=== PATIENT | female | born 1990 | race Caucasian/White ===

== ENCOUNTER 2019-04-16 12:20 | Inpatient (IN) ==
[2019-04-16] MEDS ORDERED: Ringers Solution, Lactated 1,000 ML ONE ×2 (12:34→15:20)
[2019-04-16] MEDS ORDERED: Metoclopramide 10 MG/2 ML VIAL IVP PRN ×2 (12:39→20:47)
[2019-04-16] MEDS ORDERED: Naloxone 0.4 MG/ML INJ IVP PRN (12:39)
[2019-04-16] MEDS ORDERED: Famotidine 20 MG/2 ML VIAL IVP PRN (12:39)
[2019-04-16] MEDS ORDERED: Ondansetron 4 MG/2 ML VIAL IVP PRN ×2 (12:39→20:47)
[2019-04-16] MEDS ORDERED: Ampicillin 2 GM in 0.9 % Sodium Chloride Mini Bag 100 ML IVPB STA (12:42)
[2019-04-16] MEDS ORDERED: Ringers Solution, Lactated 1,000 ML IVC SCH (12:45)
[2019-04-16 12:56] LABS: Basophils % 0.2 %; Eosinophils % 0.1 %; Hemoglobin 12.5 g/dL (10.0-21.5); Immature Granulocytes % 0.4 % (0-4); Lymphocytes # 1.3 K/mcL (0.6-4.6); Lymphocytes % 8.2 %; Mean Corpuscular HGB Conc 33.8 g/dL (28.0-37.0); Mean Corpuscular Hemoglobin 31.4 pg (28.0-40.0); Monocytes % 6.3 %; Neutrophils # 13.8 K/mcL (1.0-10.0); Platelet Count 194 K/mcL (140-400); Red Blood Count 3.98 M/mcL (3.00-6.30); Red Cell Distribution Width 13.6 % (11.5-14.5); Segmented Neutrophils % 84.8 %; White Blood Count 16.3 K/mcL (5.0-21.0)
[2019-04-16] MEDS ORDERED: Gentamicin 80 MG in 0.9 % Sodium Chloride 100 ML IVPB ONE (13:00)
--- NOTE | 2019-04-16 13:04 | OB/GYN History & Physical ---
Date of Encounter: 04/16/19 Time of Encounter: 12:58 Assessment and Plan (1) 41 weeks gestation of Current visit: Yes Status: Acute admitted for delivery (2) Thick meconium stained amniotic fluid Current visit: Yes Status: Acute Nursery notified History of Present Illness Chief complaint: labor HPI: Ms. Levy is a 28 y/o at 41 weeks gestation presents to labor and delivery from the [facility]. Patient was brought by her tail board man Laura You. Patient's water broke around 1400 yesterday. Fluid was clear however this morning turned to thick meconium around 11:18 today. The heart rate also became tachycardic this morning. She received 1 gram Rocephin at 0720 today. Patient denies any complications with current . Patient last at around 1000. Blood type: A Negative GBS: Negative Rubella: Nonimmune Hep B: unknown Past Med Surg Social Fam HX - Past Medical History Source: patient Medical history: no medical history Psychiatric history: no psych history - Past Surgical History Surgical History: no surgical history - Social History Smoking Status: Never smoker Smokeless Tobacco Status: No Alcohol use: none Drug use: none Current living situation: Detention Recent Out of Country Travel Within the Last 8 Weeks: No Obstetrical History - Pregnancies : 1 Para: 0 Term: 0 : 0 Ab's: 0 Livin Review of System OB - Constitutional Constitutional ROS IM: no chills, no fever(s), no headache(s) - Cardiovascular Cardiovascular: no chest pain, no palpitations, no syncope - Respiratory Respiratory: no cough, no dyspnea - Gastrointestinal Gastrointestinal: no constipation, no heartburn, no nausea, no vomiting - Genitourinary Genitourinary: vaginal discharge (per HPI), no abnormal vaginal bleeding, no urinary frequency, no urinary urgency, no vaginal odor, no vaginal pruritis Exam - Constitutional Constitutional: well developed, well nourished, no acute distress, average body habitus - HEENT HEENT: Normocephaly, Mucus Membranes Moist - Neck Neck exam: full ROM, supple - Lungs Respiratory exam: CTAB - Cardiovascular Cardiovascular exam: RRR, +S1, +S2 - Abdomen Abdomen: Present: bowel sounds normal, gravid, non tender - Extremities Extremities exam: full ROM, normal inspection Deep Tendon Reflex Grade: 2+ Normal - Cervix Dilation: 3 Effacement: 80 Station: -2 - Uterus Uterus exam: Present: normal size, normal contour - Anus/Rectum Anus/Rectum: Present: normal perianal skin - Comments Comments: FHR 165 bpm no accels no decels noted. Moderate variability. Contractions 2-3 min apart. Moderate amount of thick meconium noted during SVE. Results Result Diagrams: 04/16/19 12:40 Abnormal lab results Neutrophils # 13.8 K/mcL (1.0-10.0) H 04/16/19 12:40 All other labs normal. - VTE Reasons for not Prescribing Prophylaxis: Treatment not Indicated - Low risk for VTE
[2019-04-16 13:05] LABS: Amphetamine Screen,Urine Negative ng/mL (Cutoff=1000); Barbiturate Screen,Urine Negative ng/mL (Cutoff=200); Benzodiazepines Screen,Urine Negative ng/mL (Cutoff=200); Cannabinoid Screen,Urine Negative ng/mL (Cutoff = 50); Cocaine Screen,Urine Negative ng/mL (Cutoff= 300); Opiate Screen,Urine Negative ng/mL (Cutoff=300); Phencyclidine Screen,Urine Negative ng/mL (Cutoff=25)
[2019-04-16] MEDS ORDERED: Epidural Premix (fent/bupiv) 110 ML EP SCH (13:15)
[2019-04-16] MEDS ORDERED: *HR* Oxytocin 10 UNIT/ML VIAL IM ONE ×2 (15:18→16:46)
[2019-04-16] MEDS ORDERED: *HR* Morphine Sulfate/PF 10 MG/10 ML AMPUL ONE (15:18)
[2019-04-16] MEDS ORDERED: *HR* FentaNYL (PF) 100 MCG/2 ML VIAL ONE (15:18)
[2019-04-16] MEDS ORDERED: EPHEDrine 50 MG/ML VIAL ONE (15:19)
--- NOTE | 2019-04-16 15:47 | Anesthesia Evaluation PreOp ---
Date of Encounter: 04/16/19 Time of Encounter: 15:32 - Past History Planned Operation: Del, G1 spont 41wks trans from birthing center Cardiac History: Denies any Significant Hx Pulmonary History: Denies Any Significant HX WOMEN'S LACROSSE COACH History: Denies Any Significant HX Other Medical History: Denies Any Significant HX Anesthesia History: No Prior Anesthetic Complications, Past Anesthesia (no known family comp,) Alcohol Use: none Drug use: none Anesthesia Results - Labs 04/16/19 12:40 Anesthesia Exam - HEENT Pupil (Motor): Pupils equal Mallampati: II Teeth: Normal Oral Opening: Greater than 3 - WOMEN'S LACROSSE COACH LOC: Oriented WOMEN'S LACROSSE COACH Motor: Normal RUE, Normal LUE, Normal RLE, Normal LLE, Normal Face WOMEN'S LACROSSE COACH Sensory: Normal: RUE, LUE, RLE, LLE, Face - Cardiac Rhythm: Regular Murmur: None - Pulmonary Breath Sounds: bilateral Clear Respiratory Effort: Symmetrical - Additional Findings called for potential emergent d/t late dec, pt cont to contract, tracing has improved and awaiting team decision for plan. consent obtained. Anesthesia Assess/Plan ASA Score: 2 Level of consciousness: Cooperative, Oriented, Tranquil Anesthetic Plan: General, Spinal, Epidural Monitoring Plan: Standard Monitors Recovery Plan: PACU
[2019-04-16] MEDS ORDERED: Azithromycin 500 MG in D5% in Water 250 ML IVPB STA (16:25)
[2019-04-16] MEDS ORDERED: Metoclopramide 10 MG/2 ML VIAL IVP ONE (16:25)
[2019-04-16] MEDS ORDERED: CeFAZolin Premix DUPLEX 2,000 MG/50 ML BAG IVPB ONE (16:25)
[2019-04-16] MEDS ORDERED: Famotidine 20 MG/2 ML VIAL IVP ONE (16:25)
--- NOTE | 2019-04-16 16:25 | Event Note ---
Date of Encounter: 04/16/19 Time of Encounter: 16:21 28yo @ 41.0 wga presented as a transfer from the [facility]. SROM was yesterday at 1400. Light meconium was noted and it has progressed to thick meconium. She was 2 cm dilated when she left the [facility] this morning. The most recent check she was found to be 5 cm. heart rate tracing has reflected a persistent category 2. Baseline is 165/minimal variability/no accels/3 late Decels with the deepest down to 120 lasting for 2 minutes before return to baseline and contractions every 2-4 minutes. Each time the patient adjusts her position late D cells occurs. We discussed the risks, benefits and alternatives to expectant management versus a primary section. The patient consented to a primary section. Preoperative antibiotics ordered and she is being prepped for the OR currently.
[2019-04-16] MEDS ORDERED: Ondansetron 4 MG/2 ML VIAL ONE (17:12)
[2019-04-16] MEDS ORDERED: Ketorolac 30 MG/ML VIAL ONE (17:35)
--- NOTE | 2019-04-16 18:02 | OB/GYN Procedure Note ---
Section - Date of procedure: 04/16/19 Preop diagnosis: category 2 FHT tracing (Persistent ), other (2. Prolonged rupture 3. IUP at 41 weeks 0 days) Post-op diagnosis: same Procedure: section, primary low transverse Surgeon: Carli Hassan Quantitated Blood Loss: 800 Was there an graphic design assistant present: Yes Health Occupations Teacher: Amanda Bae Anesthesia Type: Spinal (With Duramorph) section complications: none Disposition: L&D Recovery Room Specimens: Placenta, Cord segment, Cord blood, Cord gasses - Narrative Narrative: Operation Performed Primary Low Transverse Section Indication for Surgery 28yo at 41.0 wga presented to labor and delivery as a transfer from the [facility]. SROM was at 1400 yesterday. Light meconium was noted SROM which progressively thickened. When she left the [facility] she was dilated 2 cm. She progressed to 5 cm on labor and delivery before having a persistent category 2 heart rate tracing with recurrent late decelerations. Antibiotics were started upon admission due to tachycardia. The patient was informed of the risks and benefits of a section. Risks included but were not limited to bleeding, infection, injury to the presenting part of the fetus, injury to the bladder, bowel, ureters and the surrounding neurovasular bundles. The patient expressed understanding of the risks involved. All questions were answered and the patient consented to the procedure. Preoperative Diagnosis 1. IUP @ 41.0 wga 2. Prolonged rupture of membranes 3. Persistent category 2 heart rate tracing Postoperative Diagnosis Same Surgeon Carli Hassan D.[facility] Occupations Teacher(s) Raman Bae Anesthesia Spinal with Duramorph Estimated Blood Loss 800 mL Urine Output 175 mL of clear yellow urine IV Fluids 1200 mL crystalloid Specimen(s) Placenta, Cord gasses, Cord blood Findings Live female , weighing 7 pounds and 11 ounces, with APGARS of 8/8. Normal appearing uterus, tubes and ovaries bilaterally. Complications None Technique The patient was taken to the operating room where a timeout was performed to confirm correct patient and correct procedure. Preoperative antibiotics were administered and spinal anesthesia was found to be adequate. The patient was prepped and draped in the usual sterile fashion for a section, in supine position with a leftward tilt of the hips. A Pfannenstiel skin incision was made with a scalpel. Dissection to the fascia was carried out using blunt and sharp dissection, followed by the Bovie electrocautery for hemostasis. The fascia was incised with a scalpel and the incision was extended laterally using curved Gomez scissors. Raymundo clamps were used to tent up the superior edge of the fascia and the underlying rectus muscles were dissected off using blunt and sharp dissection. Attention was then turned to the inferior fascial edge and dissection carried out in a similar manner. The rectus muscles were then in the midline and the peritoneum was entered using blunt and sharp dissection. The peritoneum was grasped with hemostats at the superior aspect, care was taken to avoid the bladder, and incised with Metzenbaum scissors. The peritoneal incision was extended using light traction. A bladder blade was inserted, the vesicoperitoneal reflection was identified, and a bladder flap was created using Metzenbaum scissors and blunt dissection. The bladder blade was then replaced to protect the bladder. The lower uterine segment was incised with a scalpel in transverse fashion. The hysterotomy was extended laterally with blunt traction in cephalad and caudad directions. The fetus was in vertex presentation. Large quantity of meconium-stained fluid noted. The surgeon's hand was placed under the infant's head and the infant delivered through the hysterotomy with the assistance of fundal pressure. The cord was clamped 2 and cut. The was safely transferred to the warmer for further care by the solar lab technician. Cord blood and gases were obtained for routine testing. The placenta, with three-vessel cord, was expressed intact. The placenta and uterus were both meconium-stained. The uterus was wiped clean of clots and debris before closing the hysterotomy with a running locked 0 Vicryl suture. A second imbricating layer of the same suture was placed for hemostasis. Excellent hemostasis obtained. Surgicel was placed to maintain hemostasis over the hysterotomy and bladder flap. The fascia was closed using Stratafix suture in a running nonlocked fashion. The subcutaneous tissue was closed with 3-0 Vicryl suture in a running nonlocked fashion. The skin was closed with a subcuticular stitch of 4-0 Vicryl. The patient tolerated the procedure well. At the end of the procedure, all needle sponge and instrument counts were noted to be correct 2. The patient tolerated the procedure well and was transferred to the recovery room in stable condition. Raman Bae assisted in retracting tissue to aid in visualization, cut suture, provide fundal pressure and maintain visualization within the operative field by evacuating blood and debris when needed.
[2019-04-16] MEDS ORDERED: Oxytocin 20 units/ LR 1000 mL 20 UNIT/1,000 ML BAG IVC ONE (19:18)
[2019-04-16 20:23] LABS: Basophils % 0.2 %; Immature Granulocytes % 0.5 % (0-4); Lymphocytes % 7.5 %; Mean Corpuscular HGB Conc 33.3 g/dL (31.6-35.5); Mean Corpuscular Hemoglobin 31.3 pg (28.0-33.3); Mean Corpuscular Volume 93.8 fL (83.0-100.0); Mean Platelet Volume 10.2 fL (9.4-12.4); Monocytes # 0.8 K/mcL (0.0-1.3); Monocytes % 5.8 %; Neutrophils # 11.4 K/mcL (1.6-8.9); Platelet Count 199 K/mcL (140-400); Red Blood Count 3.52 M/mcL (3.82-4.97); Red Cell Distribution Width 13.8 % (11.5-14.5); White Blood Count 13.3 K/mcL (4.3-11.1)
[2019-04-16 20:44] LABS: eGFR For African Americans > 60 (> 60); eGFR For Non-African Americans > 60 (> 60)
[2019-04-16] MEDS ORDERED: Sennosides 8.6 MG TABLET PO PRN (20:47)
[2019-04-16] MEDS ORDERED: Acetaminophen 325 MG TABLET PO SCH (20:47)
[2019-04-16] MEDS ORDERED: *HR* OxyCODONE/APAP 5/325 TABLET PO PRN (20:47)
[2019-04-16] MEDS ORDERED: Oxytocin 20 units/ LR 1000 mL 20 UNIT/1,000 ML BAG IVC SCH (20:47)
[2019-04-16] MEDS ORDERED: Rho Immune Globulin 1,500 UNIT SYRINGE IM ONE (20:47)
[2019-04-16] MEDS ORDERED: Gentamicin 80 MG in 0.9 % Sodium Chloride 100 ML IVPB SCH (22:00)
--- NOTE | 2019-04-16 22:00 | Anesthesia Evaluation Post Op ---
Date of Encounter: 04/16/19 Time of Encounter: 21:59 - Vital Signs Vital Signs: vss - Airway Airway: Non-obstructed - Mental Status Mental Status: Alert & Oriented, Answers Appropriately - Pain Pain Scale used: Prince (Faces) - Nausea Vomiting Nausea Vomiting: Not Present - Hydration Hydration: Ice chips - Discharge PostOp Status: Transfer Patient to floor
[2019-04-16] MEDS ORDERED: GENTAMICIN IVPB SCH (23:00)
[2019-04-16] MEDS ORDERED: SODIUM CHLORIDE 0.9% IVPB SCH (23:00)
[2019-04-16] MEDS: Simethicone 80 MG TAB.CHEW PO SCH (23:01)
[2019-04-16] MEDS: Ketorolac 30 MG/ML VIAL IVP SCH (23:20)
[2019-04-16] MEDS: Gentamicin 80 MG in 0.9 % Sodium Chloride 100 ML IVPB SCH (23:21)
[2019-04-17] MEDS: Ampicillin 2 GM in 0.9 % Sodium Chloride Mini Bag 100 ML IVPB SCH ×4 (01:06→19:05)
[2019-04-17] MEDS: Acetaminophen 325 MG TABLET PO SCH ×4 (03:53→20:18)
[2019-04-17] MEDS: Ketorolac 30 MG/ML VIAL IVP SCH (06:04)
[2019-04-17 07:40] LABS: Hematocrit 29.1 % (35.3-44.9); Hemoglobin 9.5 g/dL (11.5-15.4); Mean Corpuscular HGB Conc 32.6 g/dL (31.6-35.5); Platelet Count 171 K/mcL (140-400); Red Blood Count 2.97 M/mcL (3.82-4.97); Red Cell Distribution Width 14.2 % (11.5-14.5); White Blood Count 10.9 K/mcL (4.3-11.1)
[2019-04-17] MEDS: Prenatal Vit/FA 1 EACH TABLET PO SCH (08:06)
[2019-04-17] MEDS: Gentamicin 80 MG in 0.9 % Sodium Chloride 100 ML IVPB SCH ×3 (08:06→22:48)
[2019-04-17] MEDS: Simethicone 80 MG TAB.CHEW PO SCH ×3 (08:06→20:18)
[2019-04-17 08:17] LABS: eGFR For African Americans > 60 (> 60); eGFR For Non-African Americans > 60 (> 60)
[2019-04-17 08:27] LABS: Lymphocytes # 1.5 K/mcL (0.6-4.6); Monocytes # 0.3 K/mcL (0.0-1.3); Neutrophils # 9.1 K/mcL (1.6-8.9)
[2019-04-17 08:28] LABS: Platelet Estimate Normal (Normal)
--- NOTE | 2019-04-17 10:24 | OB/GYN Progress Note ---
Date of Encounter: 04/17/19 Time of Encounter: 10:22 - Assessment and Plan (1) S/P primary low transverse Current Visit: Yes Status: Acute Continue routine /postop care Anticipate discharge home tomorrow Subjective - Subjective Principal diagnosis: Primary Interval history: S/P Delivery Day 1. VSS Pain is well controlled Lochia is light and without clots Tolerating regular diet, passing flatus Was straight catheterized this AM after fonseca was removed Breast feeding Anticipate discharge to guest tomorrow POC per consult with Dr Capone Patient reports: appetite normal, voiding normally, pain well controlled, ambulating normally : doing well, in NICU Objective - Vital Signs Latest vital signs: Vital Signs Temp Pulse Resp BP Pulse Ox 04/17/19 03:52 98.2 F 68 14 90/47 98 04/16/19 23:15 97.8 F 79 18 102/58 96 04/16/19 22:10 98.2 F 87 18 95/56 97 04/16/19 21:10 98.7 F 87 18 96/53 95 04/16/19 20:52 98.3 F 79 14 100/54 95 04/16/19 20:10 97.9 F 81 16 98/54 97 Intake and Output 04/16/19 04/17/19 04/17/19 23:59 07:59 15:59 Intake Total 290 / 290 1102 / 1952 850 / 1952 Output Total 425 / 425 450 / 450 Balance -135 / -135 652 / 1502 850 / 1502 Intake: IV Fluids 302 / 302 Ampicillin 2 GM In 0.9 % Sodium 200 / 200 Chloride (Mini-Bag +) 100 ML @ 200 mls/hr IVPB Q6HR [facility] Rx#: [id number] Garamycin 80 MG In 0.9 % Sodium 102 / 102 Chloride 100 ML @ 100 mls/hr IVPB Q8H [facility] Rx#:[id number] Oral 290 / 290 800 / 1650 850 / 1650 Output: Urine 450 / 450 Catheter 425 / 425 - Exam Lungs: bilateral: normal Chest: Normal S1, Normal S2 Extremities: Present: normal Abdomen: Present: normal appearance, soft. Absent: distention, tenderness Incision: Present: normal (Dressing C/D/I), dry Uterus: Present: normal, firm Fundal Height: 0 (u/2) - Labs Labs: Laboratory Results - last 24 hr 04/16/19 04/16/19 04/16/19 12:40 12:40 17:50 WBC 16.3 RBC 3.98 Hgb 12.5 Hct 37.0 MCV 93.0 MCH 31.4 MCHC 33.8 RDW 13.6 Plt Count 194 MPV 10.0 Immature Gran % 0.4 Seg Neutrophils % 84.8 Band Neutrophils % Lymphocytes % 8.2 Monocytes % 6.3 Eosinophils % 0.1 Basophils % 0.2 Neutrophils # 13.8 H Lymphocytes # 1.3 Monocytes # 1.0 Eosinophils # 0.0 Basophils # 0.0 Platelet Estimate Creatinine Est GFR ( Amer) Est GFR (Non-Af Amer) Urine Opiates Screen Negative Ur Buprenorphine Scrn Negative Ur Barbiturates Screen Negative Ur Phencyclidine Scrn Negative Ur Amphetamines Screen Negative U Benzodiazepines Scrn Negative Urine Cocaine Screen Negative U Marijuana (THC) Screen Negative Ur Drug Screen Interp See Below Hep Bs Antigen Screen NEGATIVE Baby's Blood Type A RH POSITIVE Mother's Blood Type A RH NEGATIVE Rhogam Indicated YES Rhogam Req for Mother 1 04/16/19 04/16/19 04/16/19 19:35 19:35 19:35 WBC 13.3 H RBC 3.52 L Hgb 11.0 L D Hct 33.0 L MCV 93.8 MCH 31.3 MCHC 33.3 RDW 13.8 Plt Count 199 MPV 10.2 Immature Gran % 0.5 Seg Neutrophils % 86.0 Band Neutrophils % Lymphocytes % 7.5 Monocytes % 5.8 Eosinophils % 0.0 Basophils % 0.2 Neutrophils # 11.4 H Lymphocytes # 1.0 Monocytes # 0.8 Eosinophils # 0.0 Basophils # 0.0 Platelet Estimate Creatinine 0.39 L Est GFR ( Amer) > 60 Est GFR (Non-Af Amer) > 60 Urine Opiates Screen Ur Buprenorphine Scrn Ur Barbiturates Screen Ur Phencyclidine Scrn Ur Amphetamines Screen U Benzodiazepines Scrn Urine Cocaine Screen U Marijuana (THC) Screen Ur Drug Screen Interp Hep Bs Antigen Nonreactive Screen Baby's Blood Type Mother's Blood Type Rhogam Indicated Rhogam Req for Mother 04/17/19 04/17/19 06:53 07:42 WBC 10.9 RBC 2.97 L Hgb 9.5 L D Hct 29.1 L MCV 98.0 MCH 32.0 MCHC 32.6 RDW 14.2 Plt Count 171 MPV 10.0 Immature Gran % Seg Neutrophils % 79.0 Band Neutrophils % 4.0 Lymphocytes % 14.0 Monocytes % 3.0 Eosinophils % Basophils % Neutrophils # 9.1 H Lymphocytes # 1.5 Monocytes # 0.3 Eosinophils # Basophils # Platelet Estimate Normal Creatinine 0.43 L Est GFR ( Amer) > 60 Est GFR (Non-Af Amer) > 60 Urine Opiates Screen Ur Buprenorphine Scrn Ur Barbiturates Screen Ur Phencyclidine Scrn Ur Amphetamines Screen U Benzodiazepines Scrn Urine Cocaine Screen U Marijuana (THC) Screen Ur Drug Screen Interp Hep Bs Antigen Screen Baby's Blood Type Mother's Blood Type Rhogam Indicated Rhogam Req for Mother
[2019-04-17] MEDS ORDERED: Rho Immune Globulin 1,500 UNIT SYRINGE IM ONE (10:55)
[2019-04-17] MEDS: Ibuprofen 600 MG TABLET PO SCH ×3 (14:26→20:18)
[2019-04-18] MEDS: Acetaminophen 325 MG TABLET PO SCH ×3 (02:47→16:47)
[2019-04-18] MEDS: Ibuprofen 600 MG TABLET PO SCH (02:48)
--- NOTE | 2019-04-18 09:26 | OB/GYN Progress Note ---
Date of Encounter: 04/18/19 Time of Encounter: 09:24 - Assessment and Plan (1) S/P primary low transverse Current Visit: Yes Status: Acute Patient has met all milestones. Her pain is well controlled, she is eating and drinking appropriately has no difficulty with urination or bowel movements. Her incision is clean dry and intact and covered with a clean dry dressing. She is able to ambulate well. At this point in time she is appropriate for discharge, but given her social situation with lack of transportation, and no pharmacy in the hospital open, and with her infant needing to remain hospitalized for IV antibiotics we will keep her in the hospital for 1 more day. Subjective - Subjective Principal diagnosis: S/P Section Interval history: Day two status post Patient reports: appetite normal, voiding normally, pain well controlled (Minimal pressure with movement ), ambulating normally, other (Pt has minimal lochia, has not changed pad overnight. She has had 2BMs and is passing gas. ), no pain poorly controlled, no nauseated : nursing well, other ([place] is in SCN for meconium fluid and prolonged ruptured membranes on antibiotics ) Objective - Vital Signs Latest vital signs: Vital Signs Temp Pulse Resp BP Pulse Ox 04/18/19 08:06 98.2 F 80 14 111/62 99 04/18/19 01:29 98.7 F 95 16 103/61 99 04/17/19 20:17 97.9 F 87 14 102/62 100 04/17/19 15:44 97.9 F 80 16 100/53 98 04/17/19 12:03 97.9 F 71 16 91/51 99 Intake and Output 04/17/19 04/18/19 04/18/19 23:59 07:59 15:59 Intake Total 904 / 3508 Output Total 500 / 1550 Balance 404 / 1958 Intake: IV Fluids 304 / 808 Ampicillin 2 GM In 0.9 % Sodium 100 / 400 Chloride (Mini-Bag +) 100 ML @ 200 mls/hr IVPB Q6HR [facility] Rx#: [id number] Garamycin 80 MG In 0.9 % Sodium 204 / 408 Chloride 100 ML @ 100 mls/hr IVPB Q8H [facility] Rx#:[id number] Oral 600 / 2700 Output: Urine 500 / 1550 Other: Weight 66.451 kg - Exam Lungs: bilateral: normal Chest: Normal S1, Normal S2 Extremities: Present: edema (Minimal nonpitting) Abdomen: Present: normal appearance, soft Incision: Present: dry, intact, dressed Uterus: Present: normal, firm Comments: Uterine fundus is two finger lengths below the umbilicus. Patient does not show any signs of depression, or anxiety. Her mood is appropriate - Labs Labs: Laboratory Results - last 24 hr 04/16/19 04/17/19 04/17/19 17:50 14:51 17:25 Gentamicin Peak 5.7 Gentamicin Trough 1.5 Screen NEGATIVE Rhogam Req for Mother 1
[2019-04-18] MEDS: Prenatal Vit/FA 1 EACH TABLET PO SCH (10:18)
[2019-04-18] MEDS: Simethicone 80 MG TAB.CHEW PO SCH ×3 (10:18→20:15)
[2019-04-19] MEDS: Acetaminophen 325 MG TABLET PO SCH ×2 (00:23→05:18)
[2019-04-19] MEDS: Ibuprofen 600 MG TABLET PO SCH ×2 (08:00)
[2019-04-19] MEDS: Prenatal Vit/FA 1 EACH TABLET PO SCH (08:00)
[2019-04-19] MEDS: Simethicone 80 MG TAB.CHEW PO SCH (08:00)
--- NOTE | 2019-04-19 08:59 | Discharge Summary ---
Date of Encounter: 04/19/19 Time of Encounter: 08:57 - Discharge Diagnosis (1) S/P primary low transverse Priority: Primary Status: Acute Comments: Stable, meeting all PP milestones, pain well managed, tolerates diet, BMx2. Bottle and breast feeding, desires discharge - Discharge Medications Prescriptions: New Ferrous Sulfate 325 mg PO 0800 tablet Acetaminophen [Tylenol] 975 mg PO Q6H tablet Ibuprofen [Motrin] 600 mg PO Q6H tablet Docusate [Colace] 100 mg PO BID capsule Simethicone [Gas-X] 80 mg PO TID tab.chew Home Medications: Acetaminophen [Tylenol] 975 mg PO Q6H tablet 04/19/19 [Rx] Docusate [Colace] 100 mg PO BID capsule 04/19/19 [Rx] Ferrous Sulfate 325 mg PO 0800 tablet 04/19/19 [Rx] Ibuprofen [Motrin] 600 mg PO Q6H tablet 04/19/19 [Rx] Simethicone [Gas-X] 80 mg PO TID tab.chew 04/19/19 [Rx] Allergies/Adverse Reactions: Allergy/AdvReac Type Severity Reaction Status Date / Time No Known Drug Allergies Allergy nkda Verified 04/16/19 23:29 Data Procedures and tests throughout hospitalization: Laboratory Tests 04/16/19 04/16/19 04/16/19 12:40 12:40 17:50 WBC 16.3 RBC 3.98 Hgb 12.5 Hct 37.0 MCV 93.0 MCH 31.4 MCHC 33.8 RDW 13.6 Plt Count 194 MPV 10.0 Immature Gran % 0.4 Seg Neutrophils % 84.8 Band Neutrophils % Lymphocytes % 8.2 Monocytes % 6.3 Eosinophils % 0.1 Basophils % 0.2 Neutrophils # 13.8 H Lymphocytes # 1.3 Monocytes # 1.0 Eosinophils # 0.0 Basophils # 0.0 Platelet Estimate Creatinine Est GFR ( Amer) Est GFR (Non-Af Amer) Gentamicin Peak Gentamicin Trough Urine Opiates Screen Negative Ur Buprenorphine Scrn Negative Ur Barbiturates Screen Negative Ur Phencyclidine Scrn Negative Ur Amphetamines Screen Negative U Benzodiazepines Scrn Negative Urine Cocaine Screen Negative U Marijuana (THC) Screen Negative Ur Drug Screen Interp See Below Hep Bs Antigen Screen NEGATIVE Baby's Blood Type A RH POSITIVE Mother's Blood Type A RH NEGATIVE Rhogam Indicated YES Rhogam Req for Mother 1 04/16/19 04/16/19 04/16/19 19:35 19:35 19:35 WBC 13.3 H RBC 3.52 L Hgb 11.0 L D Hct 33.0 L MCV 93.8 MCH 31.3 MCHC 33.3 RDW 13.8 Plt Count 199 MPV 10.2 Immature Gran % 0.5 Seg Neutrophils % 86.0 Band Neutrophils % Lymphocytes % 7.5 Monocytes % 5.8 Eosinophils % 0.0 Basophils % 0.2 Neutrophils # 11.4 H Lymphocytes # 1.0 Monocytes # 0.8 Eosinophils # 0.0 Basophils # 0.0 Platelet Estimate Creatinine 0.39 L Est GFR ( Amer) > 60 Est GFR (Non-Af Amer) > 60 Gentamicin Peak Gentamicin Trough Urine Opiates Screen Ur Buprenorphine Scrn Ur Barbiturates Screen Ur Phencyclidine Scrn Ur Amphetamines Screen U Benzodiazepines Scrn Urine Cocaine Screen U Marijuana (THC) Screen Ur Drug Screen Interp Hep Bs Antigen Nonreactive Screen Baby's Blood Type Mother's Blood Type Rhogam Indicated Rhogam Req for Mother 04/17/19 04/17/19 04/17/19 06:53 07:42 14:51 WBC 10.9 RBC 2.97 L Hgb 9.5 L D Hct 29.1 L MCV 98.0 MCH 32.0 MCHC 32.6 RDW 14.2 Plt Count 171 MPV 10.0 Immature Gran % Seg Neutrophils % 79.0 Band Neutrophils % 4.0 Lymphocytes % 14.0 Monocytes % 3.0 Eosinophils % Basophils % Neutrophils # 9.1 H Lymphocytes # 1.5 Monocytes # 0.3 Eosinophils # Basophils # Platelet Estimate Normal Creatinine 0.43 L Est GFR ( Amer) > 60 Est GFR (Non-Af Amer) > 60 Gentamicin Peak Gentamicin Trough 1.5 Urine Opiates Screen Ur Buprenorphine Scrn Ur Barbiturates Screen Ur Phencyclidine Scrn Ur Amphetamines Screen U Benzodiazepines Scrn Urine Cocaine Screen U Marijuana (THC) Screen Ur Drug Screen Interp Hep Bs Antigen Screen Baby's Blood Type Mother's Blood Type Rhogam Indicated Rhogam Req for Mother 04/17/19 17:25 WBC RBC Hgb Hct MCV MCH MCHC RDW Plt Count MPV Immature Gran % Seg Neutrophils % Band Neutrophils % Lymphocytes % Monocytes % Eosinophils % Basophils % Neutrophils # Lymphocytes # Monocytes # Eosinophils # Basophils # Platelet Estimate Creatinine Est GFR ( Amer) Est GFR (Non-Af Amer) Gentamicin Peak 5.7 Gentamicin Trough Urine Opiates Screen Ur Buprenorphine Scrn Ur Barbiturates Screen Ur Phencyclidine Scrn Ur Amphetamines Screen U Benzodiazepines Scrn Urine Cocaine Screen U Marijuana (THC) Screen Ur Drug Screen Interp Hep Bs Antigen Screen Baby's Blood Type Mother's Blood Type Rhogam Indicated Rhogam Req for Mother Date of admission: 04/16/19 12:20 Primary care physician: PCP NONE Discharging clinician: Kandi Bradley Anticipated date of discharge: 04/19/19 - Patient Status Disposition: Home, Self-Care Condition: Good Functional capacity at discharge: independent ambulation Overall status at discharge: patient is progressing back to baseline - Discharge Instructions Follow Up With: NONE,PCP [Primary Care Provider] - Carli Hassan [Partnered Physician] - - Diet and Activity Activity: resume usual activities as tolerated Diet: regular diet Hospital Course Reason for admission: active labor, rupture of membranes, IUP at term Delivery: section Episiotomy: none Laceration: none complications: none Discharge diagnosis: IUP at term delivered baby: female Hospital course: - Date of procedure: 04/16/19 Preop diagnosis: category 2 FHT tracing (Persistent ), other (2. Prolonged rupture 3. IUP at 41 weeks 0 days) Post-op diagnosis: same Procedure: section, primary low transverse Surgeon: Carli Hassan Quantitated Blood Loss: 800 Was there an medical administrative assistant present: Yes Edge Grinder Machine: Amanda Bae Anesthesia Type: Spinal (With Duramorph) section complications: none Disposition: L&D Recovery Room Specimens: Placenta, Cord segment, Cord blood, Cord gasses - Narrative Narrative: Operation Performed Primary Low Transverse Section Indication for Surgery 28yo at 41.0 wga presented to labor and delivery as a transfer from the [facility]. SROM was at 1400 yesterday. Light meconium was noted SROM which progressively thickened. When she left the [facility] she was dilated 2 cm. She progressed to 5 cm on labor and delivery before having a persistent category 2 heart rate tracing with recurrent late decelerations. Antibiotics were started upon admission due to tachycardia. The patient was informed of the risks and benefits of a section. Risks included but were not limited to bleeding, infection, injury to the presenting part of the fetus, injury to the bladder, bowel, ureters and the surrounding neurovasular bundles. The patient expressed understanding of the risks involved. All questions were answered and the patient consented to the procedure. Preoperative Diagnosis 1. IUP @ 41.0 wga 2. Prolonged rupture of membranes 3. Persistent category 2 heart rate tracing Postoperative Diagnosis Same Surgeon Carli Hassan D.O. Edge Grinder Machine(s) Raman Bae Anesthesia Spinal with Duramorph Estimated Blood Loss 800 mL Urine Output 175 mL of clear yellow urine IV Fluids 1200 mL crystalloid Specimen(s) Placenta, Cord gasses, Cord blood Findings Live female infant, weighing 7 pounds and 11 ounces, with APGARS of 8/8. Normal appearing uterus, tubes and ovaries bilaterally. Complications None Stable in PP and appropriate for discharge. Time Attestation: Total time spent providing and/or coordinating discharge services: Time Spent: Less than 30 minutes - VTE Reasons for not Prescribing Prophylaxis: Treatment not Indicated - Low risk for VTE Documentation of Mechanical Device: Intermittent pneumatic compression device Exam - Constitutional Vitals: Temp Pulse Resp BP Pulse Ox 98.5 F 80 16 96/56 97 04/18/19 20:00 04/18/19 20:00 04/18/19 20:00 04/18/19 20:00 04/18/19 20:00 General appearance IM: A&O X 3 - Respiratory Respiratory exam: Present: CTAB - Cardiovascular Cardiovascular exam IM: Present: RRR - GI/Abdominal GI/Abdominal exam IM: soft - Uterine Tone: Firm Uterus Position: At Umbilicus - Extremities Exam Extremities exam IM: Present: normal capillary refill, normal inspection - Neurological Exam Neurological exam: normal gait, oriented X3 - Psychiatric Additional comments: Reports good mood
[2019-04-19 09:33] VITALS: BP 106/64
[2019-04-19] MEDS ORDERED: Aminoglycoside Consult 1 EACH MC ONE (10:44)
== END 2019-04-19 10:45 | disposition home or self-care (01) | DRG 788 ==
LOC: 1NENULAB → OBSVTOIN 12:20 → EDBD 12:20 → 1NENUOBS 19:59
PROVIDERS: ADMIT Advanced Practice Midwife; ATTEND Advanced Practice Midwife